=== PATIENT | male | born 1985 | race Caucasian/White ===

== ENCOUNTER 2019-01-20 22:07 | Emergency (ER) | payer SELFPAY ==
[2019-01-20 22:29] VITALS: BP 122/77
[2019-01-20] MEDS ORDERED: AMOX500C PO (22:36)
--- NOTE | 2019-01-20 22:36 | PHYS DOC ---
Adult General Chief Complaint Chief Complaint: sore throat HPI HPI Patient is a 33-year-old male who presents with complaint of sore throat for the last few days that has gotten worse today. He reports looking in his throat and seeing some white spots on his tonsils. He is not sure whether or not he is been running a fever.[] Review of Systems Review of Systems Constitutional: Denies fever or chills [] HENT: Positive sore throat [] Respiratory: Denies cough or shortness of breath [] Cardiovascular: No additional information not addressed in HPI [] GI: Denies abdominal pain, nausea, vomiting or diarrhea [] Physical Exam Physical Exam Constitutional: Well developed, well nourished, no acute distress, non-toxic appearance. [] HENT: Normocephalic, atraumatic, bilateral external ears normal, throat reveals pharyngeal erythema, tonsillar swelling with exudates. [] Neck: Normal range of motion, no tenderness, supple, with significant anterior cervical lymphadenopathy. [] Cardiovascular:Heart rate regular rhythm, no murmur [] Lungs & Thorax: Bilateral breath sounds clear to auscultation [] Skin: Warm, dry, no erythema, no rash. [] EKG EKG [] Radiology/Procedures Radiology/Procedures [] Course & Med Decision Making Course & Med Decision Making Pertinent Labs and Imaging studies reviewed. (See chart for details) [] Dragon Disclaimer Dragon Disclaimer This electronic medical record was generated, in whole or in part, using a voice recognition dictation system. Departure Departure: Impression: Primary Impression: Tonsillitis with exudate Disposition: HOME, SELF-CARE Condition: STABLE Referrals: PCP,NO (PCP) Patient Instructions: Form - Excuse from Work, School, or Physical Activity, Tonsillitis Scripts Amoxicillin (AMOXICILLIN) 500 Mg Capsule 1 CAP PO TID for STREP THROAT, #30 CAP Prov: CORNELIA GARCIA Jr. DO 01/20/19 CORNELIA GARCIA Jr. DO Jan 20, 2019 22:36
[2019-01-20] MEDS ORDERED: PENICILLIN G BENZATHINE LA 1,200,000 UNIT/2 ML DISP.SYRIN. IM ONE (22:45)
== END 2019-01-20 23:08 | disposition home or self-care (01) ==
LOC: ER 22:07
DX: J03.90 Acute tonsillitis, unspecified (principal)
CPT/HCPCS: 96372; 99283; J0561